=== PATIENT | male | born 1950 | race Caucasian/White ===

== ENCOUNTER 2016-12-27 09:02 | Inpatient (IN) | payer OTHER ==
[~2016-12-27] VITALS: Ht 172.7 cm; Wt 98.6 kg
[2017-03-28] VITALS (7 sets, daily range): BP systolic 130–149; BP diastolic 67–86; PULSE 49–67; TEMP 97.7–98.1
[2017-03-28] MEDS ORDERED: PRAVACHOL 40MG40 MG PO (06:13)
[2017-03-28] MEDS ORDERED: TYLENOL 500MG500 MG PO (06:14)
[2017-03-28] MEDS ORDERED: CLARITIN 1010 MG/TAB PO (06:14)
[2017-03-28 15:18] LABS: BASO % 0.2 % (0.0-2.0); GRAN # 8.4 (1.4-6.5); GRAN % 89.1 % (42.2-75.2); HEMATOCRIT 50.6 % (42.0-52.0); LYMPH # 0.7 (1.2-3.4); LYMPH % 7.2 % (20.0-51.0); MEAN CELL VOLUME 92 fl (80.0-100.0); MEAN CORPUSCULAR HEMOGLOBIN 31 pg (27.0-31.0); MEAN CORPUSCULAR HGB CONC 34 g/dl (33.0-37.0); MEAN PLATELET VOLUME 10.9 fl (7.4-10.4); MONO # 0.3 (0.1-0.6); MONO % 3.1 % (1.7-9.3); PLATELET COUNT 154 K/mm3 (130-400); RED BLOOD COUNT 5.48 M/mm3 (4.20-5.60); REDCELL DISTRIBUTION WIDTH-CV 13.2 % (11.5-14.5); WHITE BLOOD COUNT 9.4 K/mm3 (4.8-10.8)
[2017-03-28 15:35] LABS: ANION GAP 10 mmol/L (7-16); BLOOD UREA NITROGEN 14 mg/dL (9-20); CALCIUM 8.9 mg/dL (8.4-10.2); CARBON DIOXIDE 28 mmol/L (22-30); CHLORIDE 101 mmol/L (98-107); CREATININE, serum 1.09 mg/dL (0.66-1.25); GLUCOSE 175 mg/dL (74-106); MAGNESIUM 2.3 mg/dL (1.6-2.3); POTASSIUM 4.7 mmol/L (3.4-5.0); SODIUM 138 mmol/L (137-145)
[2017-03-28 15:49] LABS: TROPONIN-I < 0.012 ng/mL (0.000-0.034)
[2017-03-29 00:14] VITALS: BP 107/53; PULSE 59; TEMP 98.4
[2017-03-29 04:59] VITALS: BP 109/61; PULSE 55; TEMP 97.8
[2017-03-29 09:44] VITALS: BP 104/60; PULSE 56; TEMP 98.2
[2017-03-29 11:24] LABS: BASO % 0.2 % (0.0-2.0); EOS % 0.1 % (0-4.0); GRAN # 7.9 (1.4-6.5); GRAN % 74.8 % (42.2-75.2); HEMATOCRIT 45.9 % (42.0-52.0); HEMOGLOBIN 15.2 g/dl (13.5-18.0); LYMPH # 1.4 (1.2-3.4); LYMPH % 13.2 % (20.0-51.0); MEAN CELL VOLUME 93 fl (80.0-100.0); MEAN CORPUSCULAR HEMOGLOBIN 31 pg (27.0-31.0); MEAN CORPUSCULAR HGB CONC 33 g/dl (33.0-37.0); MEAN PLATELET VOLUME 11.3 fl (7.4-10.4); MONO # 1.2 (0.1-0.6); MONO % 11.3 % (1.7-9.3); PLATELET COUNT 161 K/mm3 (130-400); RED BLOOD COUNT 4.93 M/mm3 (4.20-5.60); REDCELL DISTRIBUTION WIDTH-CV 13.2 % (11.5-14.5); WHITE BLOOD COUNT 10.5 K/mm3 (4.8-10.8)
[2017-03-29 11:28] LABS: CALCIUM 8.6 mg/dL (8.4-10.2); CREATININE, serum 0.97 mg/dL (0.66-1.25); POTASSIUM 4.2 mmol/L (3.4-5.0)
[2017-03-29 13:49] VITALS: BP 115/58; PULSE 60; TEMP 98.6
== END 2017-03-29 18:00 | disposition home or self-care (01) | DRG 708 ==
LOC: SURG 03-28 05:52 → INPTSU 03-28 05:52 → SURG 03-28 07:30
PROVIDERS: Nurse Practitioner; Urology
PROC: 8E0W4CZ Robotic Assisted Procedure of Trunk Region, Percutaneous Endoscopic Approach (ICD-10-PCS; 2017-03-28)
PROC: 0VT04ZZ Resection of Prostate, Percutaneous Endoscopic Approach (ICD-10-PCS; principal; 2017-03-28 07:30)
DX: C61 Malignant neoplasm of prostate (principal); G47.33 Obstructive sleep apnea (adult) (pediatric); R00.8 Other abnormalities of heart beat; I49.3 Ventricular premature depolarization
CPT/HCPCS: 99223; 99232-AI; A9284; C1713; J0690; J1100; J1885; J2370; J2405; J2704; J2710; J3010; J7050; J7120

== ENCOUNTER 2020-02-26 09:09 | Day surgery (SDC) | payer BC, MEDICARE ==
[~2020-02-26] VITALS: Ht 172.7 cm; Wt 94.5 kg
[~2020-02-26 09:09] MED LIST: CLARITIN 1010 MG/TAB PO; PRAVACHOL 40MG40 MG PO; TYLENOL 500MG500 MG PO
[2020-02-26 09:32] VITALS: BP 132/78; PULSE 63; TEMP 97.9
[2020-02-26] MEDS ORDERED: ALEVE 220MG220 MG PO (09:35)
[2020-02-26] MEDS ORDERED: ASPIRIN 32325 MG/TAB PO (09:35)
[2020-02-26 12:08] VITALS: BP 131/77; PULSE 58; TEMP 97.1
--- NOTE | 2020-02-26 12:08 | NUR ---
Pt to [facility] via cart from OR. Pt drowsy but awake. Denies pain. Pt has jimenez cath in place. Urine is bright pink, no clots. Stat lock applied. Coffee and and water given per pt request. Will continue to monitor. Call light within reach.
[2020-02-26 12:23] VITALS: BP 146/78; PULSE 86
--- NOTE | 2020-02-26 12:23 | NUR ---
Pt continues to rest. Denies needs. Denies pain or nausea. Call light within reach.
[2020-02-26] MEDS ORDERED: NORCO 325 MG-51 TAB PO (12:27)
[2020-02-26] MEDS ORDERED: BACTRIM DS 8001 TAB PO (12:27)
[2020-02-26 12:38] VITALS: BP 140/84; PULSE 80
--- NOTE | 2020-02-26 12:38 | NUR ---
Pt continues to rest. Denies needs. Call light within reach.
[2020-02-26 12:53] VITALS: BP 155/74; PULSE 50
--- NOTE | 2020-02-26 12:53 | NUR ---
Jimenez draining pale yellow urine. Jimenez bag changed to leg bag. Pt does not want the jimenez bag sent home with him. Discharge instructions reviewed. Pt voices understanding. Pt feels comfortable with jimenez care from having previous catheters in the past. IV site discontinued with all parts intact. Pt up to dress. Call light within reach.
--- NOTE | 2020-02-26 13:15 | NUR ---
Pt escorted to private car via wheel chair. Pt accompanied home by his .
== END 2020-02-26 13:15 | disposition home or self-care (01) ==
LOC: SDCO 09:09
DX: N20.1 Calculus of ureter (principal); N32.0 Bladder-neck obstruction; I72.3 Aneurysm of iliac artery; K57.90 Diverticulosis of intestine, part unspecified, without perforation or abscess without bleeding; E78.00 Pure hypercholesterolemia, unspecified; G47.33 Obstructive sleep apnea (adult) (pediatric); Z90.79 Acquired absence of other genital organ(s); Z85.46 Personal history of malignant neoplasm of prostate; Z98.52 Vasectomy status; Z79.82 Long term (current) use of aspirin; Z79.899 Other long term (current) drug therapy; Z80.0 Family history of malignant neoplasm of digestive organs
CPT/HCPCS: C1769; C1894; J0690; J2704; J7120